=== PATIENT | female | born 1965 | race Caucasian/White ===

== ENCOUNTER 2022-06-05 21:04 | Emergency (ER) | payer OTHER ==
[~2022-06-05] VITALS: Ht 149.9 cm; Wt 65.3 kg
[~2022-06-05 21:04] MED LIST: BLACK COHOSH40 M1 PO; CALCIUM 600 +1 EACH PO; CHLORHEXIDINE473 ML MM; CYCLOBENZAPRINE10 MG PO; CYCLOBENZAPRINE5 MG PO; ECHINACEA125 MG PO; HYDROCODON-ACE1 EA10 PO; IBUPROFEN400 MG PO; LEVOTHYROXINE75 MCG PO; NAPROSYN500 MG PO; NORCO 5-325 TA1 EACH PO
[2022-06-05] MEDS ORDERED: ZOLOFT25 MG PO (21:23)
[2022-06-05] MEDS ORDERED: WELLBUTRIN SR150 MG PO (21:23)
[2022-06-05] MEDS ORDERED: VITAMIN B122500 MCG PO (21:24)
[2022-06-05] MEDS ORDERED: VITAMIN D325 MC2 PO (21:24)
[2022-06-05] MEDS ORDERED: XANAX0.5 MG PO (21:55)
--- NOTE | 2022-06-08 12:55 | EKG ---
[facility] [address] [facility] [place] [address] Signed Sinus rhythm with occasional premature ventricular complexes Otherwise normal ECG No previous ECGs available Confirmed by NADIRA GASPAR MD ([id number]) on 06/08/2022 12:55:08 PM Electronically Signed By: NADIRA GASPAR MD 06/08/22 1255 PATIENT NAME: CHARLOTTE HUGHES Electrocardiogram DATE OF : 61 PHYSICIAN: NADIRA GASPAR MD REPORT #: [id number] REPORT IS CONFIDENTIAL AND NOT TO BE RELEASED WITHOUT AUTHORIZATION
== END 2022-06-05 22:30 | disposition home or self-care (01) ==
LOC: ED 21:04
DX: F41.9 Anxiety disorder, unspecified (principal); E03.9 Hypothyroidism, unspecified; F17.200 Nicotine dependence, unspecified, uncomplicated; Z88.5 Allergy status to narcotic agent
CPT/HCPCS: 36415; 71045; 80053; 83735; 84484; 85025; 93005; 93010; 96374; 99285-25; J2060

== ENCOUNTER 2023-03-01 19:53 | Emergency (ER) | payer OTHER ==
[~2023-03-01] VITALS: Ht 149.9 cm; Wt 65.3 kg
[~2023-03-01 19:53] MED LIST changes: +VITAMIN B122500 MCG PO; +VITAMIN D325 MC2 PO; +WELLBUTRIN SR150 MG PO; +XANAX0.5 MG PO; +ZOLOFT25 MG PO
[2023-03-01] MEDS ORDERED: AMOX TR-K CLV1 EAC1 PO (21:08)
== END 2023-03-01 21:24 | disposition home or self-care (01) ==
LOC: ED 19:53
DX: J02.9 Acute pharyngitis, unspecified (principal); Z20.822 Contact with and (suspected) exposure to COVID-19; E03.9 Hypothyroidism, unspecified; Z88.5 Allergy status to narcotic agent; Z79.899 Other long term (current) drug therapy
CPT/HCPCS: 87502; 87880; 96372; 99283-25; C9803; J1885; U0003

== ENCOUNTER 2023-04-24 16:18 | Emergency (ER) | payer OTHER ==
[~2023-04-24 16:18] MED LIST changes: +AMOX TR-K CLV1 EAC1 PO
[2023-04-24] MEDS ORDERED: OMEPRAZOLE20 MG PO (16:34)
[2023-04-24] MEDS ORDERED: PANTOPRAZOLE SO40 MG PO (17:47)
[2023-04-24 17:59] VITALS: BP 152/78
--- NOTE | 2023-04-25 18:10 | EKG ---
[facility] [address] [facility] [place] [address] Signed Sinus bradycardia Otherwise normal ECG When compared with ECG of 05-JUN-2022 21:10, premature ventricular complexes are no longer present Confirmed by NADIRA GASPAR MD ([id number]) on 04/25/2023 6:10:19 PM Electronically Signed By: NADIRA GASPAR MD 04/25/23 1810 PATIENT NAME: CHARLOTTE HUGHES Electrocardiogram DATE OF : 61 PHYSICIAN: NADIRA GASPAR MD REPORT #: [id number] REPORT IS CONFIDENTIAL AND NOT TO BE RELEASED WITHOUT AUTHORIZATION
== END 2023-04-24 17:59 | disposition home or self-care (01) ==
LOC: ED 16:18
DX: R07.89 Other chest pain (principal); K20.90 Esophagitis, unspecified without bleeding; E03.9 Hypothyroidism, unspecified; F17.200 Nicotine dependence, unspecified, uncomplicated; Z88.5 Allergy status to narcotic agent; Z79.899 Other long term (current) drug therapy
CPT/HCPCS: 36415; 76705; 80053; 81003; 83690; 84484; 85025; 93005; 93010; 96374; 96375; 99285-25; J1885

== ENCOUNTER 2023-06-14 22:23 | Emergency (ER) | payer OTHER ==
[~2023-06-14] VITALS: Ht 149.9 cm; Wt 68.5 kg
--- OUTSIDE RECORDS SUMMARY | ~2023-06-14 | XMS | Continuity of Care Document ---
Demographics + + + | Address | [address] | | | [place] [address] | + + + | Preferred Language | Unknown | + + + | Marital Status | | + + + | Religion Affiliation | Unknown | + + + | Race | White | + + + | Ethnic Group | Not or | + + + Author + + + | Author | [facility] | + + + | Organization | [facility] | + + + | Address | [address] | | | [place] [address] | + + + | Phone | | + + + Care Team Providers + + + + | Care [facility] Stitcher Name | Role | Phone | + + + + Unavailable | Unavailable | + + + + Unavailable | Unavailable | + + + + Allergies and Intolerances + + + + + + | date | description | facility | reaction | severity | + + + + + + | (no date) | Mild | [facility] | (no reaction) | (no severity) | | | [facility] | | | + + + + + + | (no date) | Shortness of | [facility] | (no reaction) | (no severity) | | | breath | [facility] | | | + + + + + + | (no date) | Morphine | [facility] | (no reaction) | (no severity) | | | | [facility] | | | + + + + + + | (no date) | Morphine | [facility] | (no reaction) | (no severity) | | | | [facility] | | | + + + + + + | (no date) | morphine | [facility] | (no reaction) | (no severity) | | | | [facility] | | | + + + + + + | (no date) | Morphine | [facility] | (no reaction) | (no severity) | | | | [facility] | | | + + + + + + Encounters No information. Functional Status No information. Immunizations + + + + | date | description | facility | + + + + | 2017-01-30 00:00 | [facility] | + + + + Medications + + + + | date | description | facility | + + + + | 2014-06-08 00:00 | NAPROXEN | [facility] | + + + + | 2022-06-09 00:00 | CYANOCOBALAMIN (VITAMIN | [facility] | | | -) | | + + + + | 2023-03-01 00:00 | CYANOCOBALAMIN (VITAMIN | [facility] | | | B-) | | + + + + | 2023-04-24 00:00 | CYANOCOBALAMIN (VITAMIN | [facility] | | | B-12) | | + + + + | 2022-06-05 00:00 | ALPRAZOLAM | [facility] | + + + + | 2023-04-24 00:00 | OMEPRAZOLE | [facility] | + + + + | 2022-06-09 00:00 | SERTRALINE HCL | [facility] | + + + + | 2023-03-01 00:00 | SERTRALINE HCL | [facility] | + + + + | 2023-04-24 00:00 | SERTRALINE HCL | [facility] | + + + + | 2022-06-09 00:00 | Cholecalciferol (Vitamin | [facility] | | | D3) | | + + + + | 2023-03-01 00:00 | Cholecalciferol (Vitamin | [facility] | | | D3) | | + + + + | 2023-04-24 00:00 | Cholecalciferol (Vitamin | [facility] | | | D3) | | + + + + | 2022-06-09 00:00 | JULIETH JAMES | [facility] | + + + + | 2023-03-01 00:00 | JULIETH JAMES | [facility] | + + + + | 2023-04-24 00:00 | BLACK ERIKA | [facility] | + + + + | 2023-04-24 00:00 | PANTOPRAZOLE SODIUM | [facility] | + + + + | 2022-06-09 00:00 | ECHINACEA PURPUREA EXTRACT | [facility] | | | | | + + + + | 2023-03-01 00:00 | ECHINACEA PURPUREA EXTRACT | [facility] | | | | | + + + + | 2023-04-24 00:00 | ECHINACEA PURPUREA EXTRACT | [facility] | | | | | + + + + | 2023-03-01 00:00 | AMOXICILLIN/POTASSIUM CLAV | [facility] | | | | | + + + + | 2022-06-09 00:00 | CALCIUM CARBONATE/VITAMIN | [facility] | | | D3 | | + + + + | 2023-03-01 00:00 | CALCIUM CARBONATE/VITAMIN | [facility] | | | D3 | | + + + + | 2023-04-24 00:00 | CALCIUM CARBONATE/VITAMIN | [facility] | | | D3 | | + + + + | 2022-06-09 00:00 | CYCLOBENZAPRINE HCL | [facility] | + + + + | 2023-03-01 00:00 | CYCLOBENZAPRINE HCL | [facility] | + + + + | 2023-04-24 00:00 | CYCLOBENZAPRINE HCL | [facility] | + + + + | 2022-06-09 00:00 | CHLORHEXIDINE GLUCONATE | [facility] | + + + + | 2023-03-01 00:00 | CHLORHEXIDINE GLUCONATE | [facility] | + + + + | 2023-04-24 00:00 | CHLORHEXIDINE GLUCONATE | [facility] | + + + + | 2014-06-08 00:00 | HYDROCODONE | [facility] | | | BIT/ACETAMINOPHEN | | + + + + | 2022-06-09 00:00 | LEVOTHYROXINE SODIUM | [facility] | + + + + | 2023-03-01 00:00 | LEVOTHYROXINE SODIUM | [facility] | + + + + | 2023-04-24 00:00 | LEVOTHYROXINE SODIUM | [facility] | + + + + | 2022-06-09 00:00 | buPROPion HCL | [facility] | + + + + | 2023-03-01 00:00 | buPROPion HCL | [facility] | + + + + | 2023-04-24 00:00 | buPROPion HCL | [facility] | + + + + Problems + + + + | date | description | facility | + + + + | 2015-07-14 00:00 | Dizziness and giddiness | [facility] | + + + + | 2017-01-30 00:00 | Laceration | [facility] | + + + + | 2022-06-05 00:00 | Anxiety | [facility] | + + + + | 2023-03-01 00:00 | Pharyngitis | [facility] | + + + + | 2023-04-24 00:00 | Esophagitis | [facility] | + + + + | 2023-04-24 00:00 | Atypical chest pain | [facility] | + + + + Procedures No information. Results/Labs +--------+--------+ +---------+--------+---------+ | test | date | facility | value | unit | notes | +--------+--------+ +---------+--------+---------+ + + | Result panel 1 | + + + + + +-------+ + + | | 2022-06-05 | [facility] | 7.3 | (missing) | (missing) | | (unavailable | 21:20 | [facility] | | | | + + + +-------+ + + + + | Result panel 2 | + + + + + +--------+ + + | | 2022-06-05 | [facility] | 4.24 | (missing) | (missing) | | (unavailable | 21:20 | [facility] | | | | + + + +--------+ + + + + | Result panel 3 | + + + + + +--------+ + + | | 2022-06-05 | [facility] | 13.1 | (missing) | (missing) | | (unavailable | 21:20 | [facility] | | | | + + + +--------+ + + + + | Result panel 4 | + + + + + +--------+ + + | | 2022-06-05 | [facility] | 38.3 | (missing) | (missing) | | (unavailable | 21:20 | [facility] | | | | + + + +--------+ + + + + | Result panel 5 | + + + + + +--------+ + + | | 2022-06-05 | [facility] | 90.5 | (missing) | (missing) | | (unavailable | 21:20 | [facility] | | | | + + + +--------+ + + + + | Result panel 6 | + + + + + +--------+ + + | | 2022-06-05 | [facility] | 30.9 | (missing) | (missing) | | (unavailable | 21:20 | [facility] | | | | + + + +--------+ + + + + | Result panel 7 | + + + + + +--------+ + + | | 2022-06-05 | [facility] | 34.1 | (missing) | (missing) | | (unavailable | 21:20 | [facility] | | | | + + + +--------+ + + + + | Result panel 8 | + + + + + +--------+ + + | | 2022-06-05 | [facility] | 13.9 | (missing) | (missing) | | (unavailable | 21:20 | [facility] | | | | + + + +--------+ + + + + | Result panel 9 | + + + + + +-------+ + + | | 2022-06-05 | [facility] | 190 | (missing) | (missing) | | (unavailable | 21:20 | [facility] | | | | + + + +-------+ + + + + | Result panel 10 | + + + + + +--------+ + + | | 2022-06-05 | [facility] | 52.2 | (missing) | (missing) | | (unavailable | 21:20 | [facility] | | | | + + + +--------+ + + + + | Result panel 11 | + + + + + +--------+ + + | | 2022-06-05 | [facility] | 35.6 | (missing) | (missing) | | (unavailable | 21:20 | [facility] | | | | + + + +--------+ + + + + | Result panel 12 | + + + + + +-------+ + + | | 2022-06-05 | [facility] | 8.9 | (missing) | (missing) | | (unavailable | 21:20 | [facility] | | | | + + + +-------+ + + + + | Result panel 13 | + + + + + +-------+ + + | | 2022-06-05 | [facility] | 2.5 | (missing) | (missing) | | (unavailable | 21:20 | [facility] | | | | + + + +-------+ + + + + | Result panel 14 | + + + + + +-------+ + + | | 2022-06-05 | [facility] | 0.8 | (missing) | (missing) | | (unavailable | 21:20 | [facility] | | | | + + + +-------+ + + + + | Result panel 15 | + + + + + +------+---------+ + | | 2022-06-05 | [facility] | 97 | mg/dL | (missing) | | (unavailable | 21:20 | [facility] | | | | + + + +------+---------+ + + + | Result panel 16 | + + + + + +------+---------+ + | | 2022-06-05 | [facility] | 22 | mg/dL | (missing) | | (unavailable | 21:20 | [facility] | | | | + + + +------+---------+ + + + | Result panel 17 | + + + + + +--------+---------+ + | | 2022-06-05 | [facility] | 0.93 | mg/dL | (missing) | | (unavailable | 21:20 | [facility] | | | | + + + +--------+---------+ + + + | Result panel 18 | + + + + + +------+ + + | | 2022-06-05 | [facility] | 71 | (missing) | (missing) | | (unavailable | 21:20 | [facility] | | | | + + + +------+ + + + + | Result panel 19 | + + + + + +---------+ + + | | 2022-06-05 | [facility] | 23.65 | (missing) | (missing) | | (unavailable | 21:20 | [facility] | | | | + + + +---------+ + + + + | Result panel 20 | + + + + + +-------+ + + | | 2022-06-05 | [facility] | 139 | (missing) | (missing) | | (unavailable | 21:20 | [facility] | | | | + + + +-------+ + + + + | Result panel 21 | + + + + + +-------+ + + | | 2022-06-05 | [facility] | 3.8 | (missing) | (missing) | | (unavailable | 21:20 | [facility] | | | | + + + +-------+ + + + + | Result panel 22 | + + + + + +-------+ + + | | 2022-06-05 | [facility] | 104 | (missing) | (missing) | | (unavailable | 21:20 | [facility] | | | | + + + +-------+ + + + + | Result panel 23 | + + + + + +------+ + + | | 2022-06-05 | [facility] | 25 | (missing) | (missing) | | (unavailable | 21:20 | [facility] | | | | + + + +------+ + + + + | Result panel 24 | + + + + + +--------+ + + | | 2022-06-05 | [facility] | 13.8 | (missing) | (missing) | | (unavailable | 21:20 | [facility] | | | | + + + +--------+ + + + + | Result panel 25 | + + + + + +-------+---------+ + | | 2022-06-05 | [facility] | 9.3 | mg/dL | (missing) | | (unavailable | 21:20 | [facility] | | | | + + + +-------+---------+ + + + | Result panel 26 | + + + + + +-------+---------+ + | | 2022-06-05 | [facility] | 2.0 | mg/dL | (missing) | | (unavailable | 21:20 | [facility] | | | | + + + +-------+---------+ + + + | Result panel 27 | + + + + + +-------+ + + | | 2022-06-05 | [facility] | 6.9 | (missing) | (missing) | | (unavailable | 21:20 | [facility] | | | | + + + +-------+ + + + + | Result panel 28 | + + + + + +-------+ + + | | 2022-06-05 | [facility] | 3.6 | (missing) | (missing) | | (unavailable | 21:20 | [facility] | | | | + + + +-------+ + + + + | Result panel 29 | + + + + + +-------+ + + | | 2022-06-05 | [facility] | 3.3 | (missing) | (missing) | | (unavailable | 21:20 | [facility] | | | | + + + +-------+ + + + + | Result panel 30 | + + + + + +--------+ + + | | 2022-06-05 | [facility] | 1.09 | (missing) | (missing) | | (unavailable | 21:20 | [facility] | | | | + + + +--------+ + + + + | Result panel 31 | + + + + + +-------+ + + | | 2022-06-05 | [facility] | 0.4 | (missing) | (missing) | | (unavailable | 21:20 | [facility] | | | | + + + +-------+ + + + + | Result panel 32 | + + + + + +------+ + + | | 2022-06-05 | [facility] | 25 | (missing) | (missing) | | (unavailable | 21:20 | [facility] | | | | + + + +------+ + + + + | Result panel 33 | + + + + + +------+ + + | | 2022-06-05 | [facility] | 32 | (missing) | (missing) | | (unavailable | 21:20 | [facility] | | | | + + + +------+ + + + + | Result panel 34 | + + + + + +------+ + + | | 2022-06-05 | [facility] | 69 | (missing) | (missing) | | (unavailable | 21:20 | [facility] | | | | + + + +------+ + + + + | Result panel 35 | + + + + + +-------+ + + | | 2022-06-05 | [facility] | 5.8 | (missing) | (missing) | | (unavailable | 21:20 | [facility] | | | | + + + +-------+ + + + + | Result panel 36 | + + + + + + + + + | | 2023-03-01 | [facility] | NEGATIVE | (missing) | (missing) | | (unavailable | 20:02:07 | [facility] | | | | + + + + + + + + + | Result panel 37 | + + + + + + + + + | | 2023-03-01 | [facility] | NEGATIVE | (missing) | (missing) | | (unavailable | 20:21:07 | [facility] | | | | + + + + + + + + + | Result panel 38 | + + + + + + + + + | | 2023-03-01 | [facility] | NEGATIVE | (missing) | (missing) | | (unavailable | 20:21:07 | [facility] | | | | + + + + + + + + + | Result panel 39 | + + + + + + + + + | | 2023-03-01 | [facility] | NEGATIVE | (missing) | (missing) | | (unavailable | 20:21:07 | [facility] | | | | + + + + + + + + + | Result panel 40 | + + + + + + + + + | | 2023-03-01 | [facility] | NEGATIVE | (missing) | (missing) | | (unavailable | 20:21:07 | [facility] | | | | + + + + + + + + + | Result panel 41 | + + + + + +-------+ + + | | 2023-04-24 | [facility] | 5.6 | (missing) | (missing) | | (unavailable | 16:39:07 [facility] | | | | + + + +-------+ + + + + | Result panel 42 | + + + + + +--------+ + + | | 2023-04-24 | [facility] | 49.0 | (missing) | (missing) | | (unavailable | 16:39:07 [facility] | | | | + + + +--------+ + + + + | Result panel 43 | + + + + + +--------+ + + | | 2023-04-24 | [facility] | 39.0 | (missing) | (missing) | | (unavailable | 16:39:07 [facility] | | | | + + + +--------+ + + + + | Result panel 44 | + + + + + +-------+ + + | | 2023-04-24 | [facility] | 8.3 | (missing) | (missing) | | (unavailable | 16:39:07 [facility] | | | | + + + +-------+ + + + + | Result panel 45 | + + + + + +-------+ + + | | 2023-04-24 | [facility] | 2.2 | (missing) | (missing) | | (unavailable | 16:39:07 [facility] | | | | + + + +-------+ + + + + | Result panel 46 | + + + + + +-------+ + + | | 2023-04-24 | [facility] | 1.5 | (missing) | (missing) | | (unavailable | 16:39:07 [facility] | | | | + + + +-------+ + + + + | Result panel 47 | + + + + + +--------+ + + | | 2023-04-24 | [facility] | 4.49 | (missing) | (missing) | | (unavailable | 16:39:07 [facility] | | | | + + + +--------+ + + + + | Result panel 48 | + + + + + +------+---------+ + | | 2023-04-24 | [facility] | 79 | mg/dL | (missing) | | (unavailable | 16:39:07 [facility] | | | | + + + +------+---------+ + + + | Result panel 49 | + + + + + +------+---------+ + | | 2023-04-24 | [facility] | 22 | mg/dL | (missing) | | (unavailable | 16:39:07 [facility] | | | | + + + +------+---------+ + + + | Result panel 50 | + + + + + +--------+---------+ + | | 2023-04-24 | [facility] | 0.86 | mg/dL | (missing) | | (unavailable | 16:39:07 [facility] | | | | + + + +--------+---------+ + + + | Result panel 51 | + + + + + +--------+ + + | | 2023-04-24 | [facility] | 13.8 | (missing) | (missing) | | (unavailable | 16:39:07 [facility] | | | | + + + +--------+ + + + + | Result panel 52 | + + + + + +------+ + + | | 2023-04-24 | [facility] | 78 | (missing) | (missing) | | (unavailable | 16:39:07 [facility] | | | | + + + +------+ + + + + | Result panel 53 | + + + + + +---------+ + + | | 2023-04-24 | [facility] | 25.58 | (missing) | (missing) | | (unavailable | 16:39:07 [facility] | | | | + + + +---------+ + + + + | Result panel 54 | + + + + + +-------+ + + | | 2023-04-24 | [facility] | 140 | (missing) | (missing) | | (unavailable | 16:39:07 [facility] | | | | + + + +-------+ + + + + | Result panel 55 | + + + + + +-------+ + + | | 2023-04-24 | [facility] | 3.9 | (missing) | (missing) | | (unavailable | 16:39:07 [facility] | | | | + + + +-------+ + + + + | Result panel 56 | + + + + + +-------+ + + | | 2023-04-24 | [facility] | 104 | (missing) | (missing) | | (unavailable | 16:39:07 [facility] | | | | + + + +-------+ + + + + | Result panel 57 | + + + + + +------+ + + | | 2023-04-24 | [facility] | 27 | (missing) | (missing) | | (unavailable | 16:39:07 [facility] | | | | + + + +------+ + + + + | Result panel 58 | + + + + + +--------+ + + | | 2023-04-24 | [facility] | 12.9 | (missing) | (missing) | | (unavailable | 16:39:07 [facility] | | | | + + + +--------+ + + + + | Result panel 59 | + + + + + +-------+---------+ + | | 2023-04-24 | [facility] | 8.8 | mg/dL | (missing) | | (unavailable | 16:39:07 [facility] | | | | + + + +-------+---------+ + + + | Result panel 60 | + + + + + +-------+ + + | | 2023-04-24 | [facility] | 7.6 | (missing) | (missing) | | (unavailable | 16:39:07 [facility] | | | | + + + +-------+ + + + + | Result panel 61 | + + + + + +-------+ + + | | 2023-04-24 | [facility] | 4.1 | (missing) | (missing) | | (unavailable | 16:39:07 [facility] | | | | + + + +-------+ + + + + | Result panel 62 | + + + + + +--------+ + + | | 2023-04-24 | [facility] | 40.3 | (missing) | (missing) | | (unavailable | 16:39:07 [facility] | | | | + + + +--------+ + + + + | Result panel 63 | + + + + + +-------+ + + | | 2023-04-24 | [facility] | 3.5 | (missing) | (missing) | | (unavailable | 16:39:07 [facility] | | | | + + + +-------+ + + + + | Result panel 64 | + + + + + +--------+ + + | | 2023-04-24 | [facility] | 1.17 | (missing) | (missing) | | (unavailable | 16[facility]39:07 [facility] | | | | + + + +--------+ + + + + | Result panel 65 | + + + + + +-------+ + + | | 2023-04-24 | [facility] | 0.3 | (missing) | (missing) | | (unavailable | 16[facility]39:07 [facility] | | | + + + +-------+ + + + + | Result panel 66 | + + + + + +------+ + + | | 2023-04-24 | [facility] | 24 | (missing) | (missing) | | (unavailable | 16[facility]39:07 [facility] | | | | + + + +------+ + + + + | Result panel 67 | + + + + + +------+ + + | | 2023-04-24 | [facility] | 31 | (missing) | (missing) | | (unavailable | 16[facility]39:07 [facility] | | | | + + + +------+ + + + + | Result panel 68 | + + + + + +------+ + + | | 2023-04-24 | [facility] | 73 | (missing) | (missing) | | (unavailable | 16:39:07 [facility] | | | | + + + +------+ + + + + | Result panel 69 | + + + + + +-------+ + + | | 2023-04-24 | [facility] | 244 | (missing) | (missing) | | (unavailable | 16:39:07 [facility] | | | | + + + +-------+ + + + + | Result panel 70 | + + + + + +-------+ + + | | 2023-04-24 | [facility] | 6.2 | (missing) | (missing) | | (unavailable | 16[facility]39:07 [facility] | | | | + + + +-------+ + + + + | Result panel 71 | + + + + + +--------+ + + | | 2023-04-24 | [facility] | 89.8 | (missing) | (missing) | | (unavailable | 16[facility]39:07 [facility] | | | + + + +--------+ + + + + | Result panel 72 | + + + + + +--------+ + + | | 2023-04-24 | [facility] | 30.7 | (missing) | (missing) | | (unavailable | 16[facility]39:07 [facility] | | | + + + +--------+ + + + + | Result panel 73 | + + + + + +--------+ + + | | 2023-04-24 | [facility] | 34.2 | (missing) | (missing) | | (unavailable | [facility]39:07 [facility] | | | + + + +--------+ + + + + | Result panel 74 | + + + + + +--------+ + + | | 2023-04-24 | [facility] | 13.6 | (missing) | (missing) | | (unavailable | [facility]39:07 [facility] | | | + + + +--------+ + + + + | Result panel 75 | + + + + + +-------+ + + | | 2023-04-24 | [facility] | 176 | (missing) | (missing) | | (unavailable | 16[facility]39:07 [facility] | | | | + + + +-------+ + + + + | Result panel 76 | + + + + + + + + + | | 2023-04-24 | [facility] | YELLOW | (missing) | (missing) | | (unavailable | 17:17:07 [facility] | | | | + + + + + + + + + | Result panel 77 | + + + + + +---------+ + + | | 2023-04-24 | [facility] | CLEAR | (missing) | (missing) | | (unavailable | 17:17:07 [facility] | | | | + + + +---------+ + + + + | Result panel 78 | + + + + + + + + + | | 2023-04-24 | [facility] | NEGATIVE | (missing) | (missing) | | (unavailable | 17:17:07 [facility] | | | | + + + + + + + + + | Result panel 79 | + + + + + + + + + | | 2023-04-24 | [facility] | NEGATIVE | (missing) | (missing) | | (unavailable | 17[facility]17:07 [facility] | | | | + + + + + + + + + | Result panel 80 | + + + + + + + + + | | 2023-04-24 | [facility] | NEGATIVE | (missing) | (missing) | | (unavailable | 17:17:07 | [facility] | | | | + + + + + + + + + | Result panel 81 | + + + + + +---------+ + + | | 2023-04-24 | [facility] | 1.010 | (missing) | (missing) | | (unavailable | [facility]:17:07 [facility] | | | | + + + +---------+ + + + + | Result panel 82 | + + + + + + + + + | | 2023-04-24 | [facility] | NEGATIVE | (missing) | (missing) | | (unavailable | [facility]17:07 [facility] | | | | + + + + + + + + + | Result panel 83 | + + + + + +-------+ + + | | 2023-04-24 | [facility] | 6.5 | (missing) | (missing) | | (unavailable | [facility]17:07 [facility] | | | | + + + +-------+ + + + + | Result panel 84 | + + + + + + + + + | | 2023-04-24 | [facility] | NEGATIVE | (missing) | (missing) | | (unavailable | [facility]17:07 [facility] | | | | + + + + + + + + + | Result panel 85 | + + + + + + + + + | | 2023-04-24 | [facility] | NORMAL | (missing) | (missing) | | (unavailable | [facility]17:07 [facility] | | | | + + + + + + + + + | Result panel 86 | + + + + + + + + + | | 2023-04-24 | [facility] | NEGATIVE | (missing) | (missing) | | (unavailable | [facility]17:07 [facility] | | | | + + + + + + + + + | Result panel 87 | + + + + + + + + + | | 2023-04-24 | [facility] | NEGATIVE | (missing) | (missing) | | (unavailable | [facility]17:07 [facility] | | | | + + + + + + + Social History No information. Vital Signs + + + +---------+ | date | measurement | value | units | + + + +---------+ | 2022-06-05 00:00 | BMI | 29.1 | kg/m2 | + + + +---------+ | 2022-06-05 00:00 | BP_diastolic | 72 | mmHg | + + + +---------+ | 2022-06-05 00:00 | BP_systolic | 130 | mmHg | + + + +---------+ | 2022-06-05 00:00 | heart_rate | 76 | /min | + + + +---------+ | 2022-06-05 00:00 | height_metric | 149.86 | cm | + + + +---------+ | 2022-06-05 00:00 | height_standard | 59 | in | + + + +---------+ | 2022-06-05 00:00 | o2_saturation | 96 | % | + + + +---------+ | 2022-06-05 00:00 | respiration_rate | 12 | /min | + + + +---------+ | 2022-06-05 00:00 | temperature_metric | 36.56 | C | | | | | | + + + +---------+ | 2022-06-05 00:00 | | 97.8 | F | | | temperature_standar | | | | | d | | | + + + +---------+ | 2022-06-05 00:00 | weight_metric | 65.32 | kg | + + + +---------+ | 2022-06-05 00:00 | weight_standard | 144 | lb | + + + +---------+ | 2022-06-05 00:00 | weight_standard | 144.01 | lb | + + + +---------+ | 2023-03-01 00:00 | BMI | 29.1 | kg/m2 | + + + +---------+ | 2023-03-01 00:00 | BP_diastolic | 69 | mmHg | + + + +---------+ | 2023-03-01 00:00 | BP_systolic | 115 | mmHg | + + + +---------+ | 2023-03-01 00:00 | heart_rate | 94 | /min | + + + +---------+ | 2023-03-01 00:00 | height_metric | 149.86 | cm | + + + +---------+ | 2023-03-01 00:00 | height_standard | 59 | in | + + + +---------+ | 2023-03-01 00:00 | o2_saturation | 95 | % | + + + +---------+ | 2023-03-01 00:00 | respiration_rate | 16 | /min | + + + +---------+ | 2023-03-01 00:00 | temperature_metric | 37.61 | C | | | | | | + + + +---------+ | 2023-03-01 00:00 | | 99.7 | F | | | temperature_standar | | | | | d | | | + + + +---------+ | 2023-03-01 00:00 | weight_metric | 65.32 | kg | + + + +---------+ | 2023-03-01 00:00 | weight_standard | 144 | lb | + + + +---------+ | 2023-03-01 00:00 | weight_standard | 144.01 | lb | + + + +---------+ | 2023-04-24 00:00 | BP_diastolic | 78 | mmHg | + + + +---------+ | 2023-04-24 00:00 | BP_systolic | 152 | mmHg | + + + +---------+ | 2023-04-24 00:00 | heart_rate | 59 | /min | + + + +---------+ | 2023-04-24 00:00 | height_metric | 149.86 | cm | + + + +---------+ | 2023-04-24 00:00 | height_standard | 59 | in | + + + +---------+ | 2023-04-24 00:00 | o2_saturation | 99 | % | + + + +---------+ | 2023-04-24 00:00 | respiration_rate | 16 | /min | + + + +---------+ | 2023-04-24 00:00 | temperature_metric | 36.83 | C | | | | | | + + + +---------+ | 2023-04-24 00:00 | | 98.3 | F | | | temperature_standar | | | | | d | | | + + + +---------+"
--- OUTSIDE RECORDS SUMMARY | ~2023-06-14 | XMS | Continuity of Care Document ---
Demographics + + + | Address | [address] | | | [place] [address] | + + + | Preferred Language | Unknown | + + + | Marital Status | | + + + | Protestant Affiliation | Unknown | + + + | Race | White | + + + | Ethnic Group | Not or | + + + Author + + + | Author | [facility] | + + + | Organization | [facility] | + + + | Address | [address] | | | [place] [address] | + + + | Phone | | + + + Care Team Providers + + + + | Care Cryptologic Technician Technical Name | Role | Phone | + [...] | 2017-01-30 00:00 | [facility] | [facility] | + + + + Medications + + + + | date | description | facility | + + + + | 2014-06-08 00:00 | NAPROXEN | [facility] | + + + + | 2022-06-09 00:00 | CYANOCOBALAMIN (VITAMIN | [facility] | | | -) | | + + + + | 2023-03-01 00:00 | CYANOCOBALAMIN (VITAMIN | [facility] | | | B-) | | + + + + | 2023-04-24 00:00 | CYANOCOBALAMIN (VITAMIN | [facility] | | | B-12) | | + + + + | 2022-06-05 00:00 | ALPRAZOLAM | [facility] | + + + + | 2023-04-24 00:00 | OMEPRAZOLE | [facility] | + + + + | 2022-06-09 00:00 | SERTRALINE HCL | [facility] | + + + + | 2023-03-01 00:00 | SERTRALINE HCL | [facility] | + + + + | 2023-04-24 00:00 | SERTRALINE HCL | [facility] | + + + + | 2022-06-09 00:00 | Cholecalciferol (Vitamin | [facility] | | | D3) | | + + + + | 2023-03-01 00:00 | Cholecalciferol (Vitamin | [facility] | | | D3) | | + + + + | 2023-04-24 00:00 | Cholecalciferol (Vitamin | [facility] | | | D3) | | + + + + | 2022-06-09 00:00 | JULIETH JAMES | [facility] | + + + + | 2023-03-01 00:00 | JULIETH JAMES | [facility] | + + + + | 2023-04-24 00:00 | BLACK ERIKA | [facility] | + + + + | 2023-04-24 00:00 | PANTOPRAZOLE SODIUM | [facility] | + + + + | 2022-06-09 00:00 | ECHINACEA PURPUREA EXTRACT | [facility] | | | | | + + + + | 2023-03-01 00:00 | ECHINACEA PURPUREA EXTRACT | [facility] | | | | | + + + + | 2023-04-24 00:00 | ECHINACEA PURPUREA EXTRACT | [facility] | | | | | + + + + | 2023-03-01 00:00 | AMOXICILLIN/POTASSIUM CLAV | [facility] | | | | | + + + + | 2022-06-09 00:00 | CALCIUM CARBONATE/VITAMIN | [facility] | | | D3 | | + + + + | 2023-03-01 00:00 | CALCIUM CARBONATE/VITAMIN | [facility] | | | D3 | | + + + + | 2023-04-24 00:00 | CALCIUM CARBONATE/VITAMIN | [facility] | | | D3 | | + + + + | 2022-06-09 00:00 | CYCLOBENZAPRINE HCL | [facility] | + + + + | 2023-03-01 00:00 | CYCLOBENZAPRINE HCL | [facility] | + + + + | 2023-04-24 00:00 | CYCLOBENZAPRINE HCL | [facility] | + + + + | 2022-06-09 00:00 | CHLORHEXIDINE GLUCONATE | [facility] | + + + + | 2023-03-01 00:00 | CHLORHEXIDINE GLUCONATE | [facility] | + + + + | 2023-04-24 00:00 | CHLORHEXIDINE GLUCONATE | [facility] | + + + + | 2014-06-08 00:00 | HYDROCODONE | [facility] | | | BIT/ACETAMINOPHEN | | + + + + | 2022-06-09 00:00 | LEVOTHYROXINE SODIUM | [facility] | + + + + | 2023-03-01 00:00 | LEVOTHYROXINE SODIUM | [facility] | + + + + | 2023-04-24 00:00 | LEVOTHYROXINE SODIUM | [facility] | + + + + | 2022-06-09 00:00 | buPROPion HCL | [facility] | + + + + | 2023-03-01 00:00 | buPROPion HCL | [facility] | + + + + | 2023-04-24 00:00 | buPROPion HCL | [facility] | + + + + Problems + + + + | date | description | facility | + + + + | 2015-07-14 00:00 | Dizziness and giddiness | [facility] | + + + + | 2017-01-30 00:00 | Laceration | [facility] | + + + + | 2022-06-05 00:00 | Anxiety | [facility] | + + + + | 2023-03-01 00:00 | Pharyngitis | [facility] | + + + + | 2023-04-24 00:00 | Esophagitis | [facility] | + + + + | 2023-04-24 00:00 | Atypical chest pain | [facility] | + + + + Procedures [...] (missing) | | (unavailable | 16:39:07 | [facility] | | | | | ) | [...] (missing) | | (unavailable | 16:39:07 | [facility] | | | | | ) | [...]
[~2023-06-14 22:23] MED LIST changes: +OMEPRAZOLE20 MG PO; +PANTOPRAZOLE SO40 MG PO
[2023-06-15 01:17] VITALS: BP 144/62
== END 2023-06-15 01:18 | disposition home or self-care (01) ==
LOC: ED 22:23
DX: M79.671 Pain in right foot (principal); M79.604 Pain in right leg; F17.200 Nicotine dependence, unspecified, uncomplicated; Z88.5 Allergy status to narcotic agent; Z79.890 Hormone replacement therapy; Z79.899 Other long term (current) drug therapy
CPT/HCPCS: 93971; 99283 25

== ENCOUNTER 2024-11-11 15:43 | Emergency (ER) | payer OTHER ==
[~2024-11-11] VITALS: Ht 149.9 cm; Wt 73.0 kg
[~2024-11-11 15:43] MED LIST changes: +ZITHROMAX250 MG PO
[2024-11-11] MEDS ORDERED: MULTI-DAY PLUS1 EACH PO (16:38)
[2024-11-11] MEDS ORDERED: MAGNESIUM400 MG PO (16:38)
[2024-11-11] MEDS ORDERED: NAPROXEN500 MG PO (16:38)
[2024-11-11] MEDS ORDERED: VITAMIN E TOP (16:39)
[2024-11-11] MEDS ORDERED: VITAMIN B COMP1 EAC1 PO (16:39)
[2024-11-11] MEDS ORDERED: [UNRECOGNIZED DRUG - OTHER] PO (16:39)
[2024-11-11] MEDS ORDERED: OXYCODONE/APAP 5/325 TAB PO ONE (17:15)
[2024-11-11] MEDS ORDERED: PERCOCET 5-3251 EACH PO (17:43)
[2024-11-11 17:55] VITALS: BP 131/74
== END 2024-11-11 17:55 | disposition home or self-care (01) ==
LOC: ED 15:43
DX: S80.02XA Contusion of left knee, initial encounter (principal); S40.011A Contusion of right shoulder, initial encounter; S40.021A Contusion of right upper arm, initial encounter; E03.9 Hypothyroidism, unspecified; K21.9 Gastro-esophageal reflux disease without esophagitis; F17.200 Nicotine dependence, unspecified, uncomplicated; Z88.5 Allergy status to narcotic agent; Z79.1 Long term (current) use of non-steroidal anti-inflammatories (NSAID); Z79.890 Hormone replacement therapy; Z79.899 Other long term (current) drug therapy; W01.0XXA Fall on same level from slipping, tripping and stumbling without subsequent striking against object, initial encounter
CPT/HCPCS: 73060; 73560; 99283

== ENCOUNTER 2025-02-19 08:20 | Day surgery (SDC) | payer OTHER ==
[~2025-02-19] VITALS: Ht 149.9 cm; Wt 75.0 kg
[~2025-02-19 08:20] MED LIST changes: +IBLOOD GLUCOSE TEST STRIP 1 EA TEST VI PRN; +LACTATED RINGER'S 1,000 ML IV SCH; +LIDOCAINE HCL 1% 5 ML SDV INJ ONE; +MAGNESIUM400 MG PO; +MIDAZOLAM HCL 5 MG/5 ML VIAL IV PRN; +MULTI-DAY PLUS1 EACH PO; +NAPROXEN500 MG PO; +PERCOCET 5-3251 EACH PO; +VITAMIN B COMP1 EAC1 PO; +VITAMIN E TOP; +[UNRECOGNIZED DRUG - OTHER] PO; +fentaNYL citrate 100 MCG/2 ML VIAL IV PRN
[2025-02-19 08:44] VITALS: BP 136/82
[2025-02-19] MEDS ORDERED: MIDAZOLAM HCL 5 MG/5 ML VIAL ONE (09:27)
[2025-02-19] MEDS ORDERED: fentaNYL citrate 100 MCG/2 ML VIAL ONE (09:27)
--- NOTE | 2025-02-19 10:57 | NUR ---
02/19/25 Tate7 Renee Cobb 1033- PT ARRIVES TO PACU, REACTIVE TO STIMULUS, LEFT LATERAL POSITION. O2 AT 3L PER NC, BREATHING EVEN AND NON LABORED. LR INFUSING TO RH IV. ABD SOFT, NON DISTENDED. ALL MONITORS IN PLACE. 1042- PT WOKE WITH VERBAL AND TACTILE STIMULI, PT HAS SOME NYSTAGMUS, REORIENTED TO TIME AND PLACE. DR MACK AT BEDSIDE TO DISCUSS FINDINGS. 1050- PT WAKES ON OWN, DENIES PAIN AND NAUSEA. PT IS PASSING LARGE AMOUNTS OF GAS. REPORTS JUST TIRED. 1054- PT MOVED TO ROOM AIR AT THIS TIME.
[2025-02-19 11:31] VITALS: BP 122/75
--- NOTE | 2025-02-20 07:20 | OR ---
[facility] [address] [place], [place] [address] Signed DATE OF OPERATION: 02/19/2025 SURGEON: Ashanti Mack MD PREOPERATIVE DIAGNOSES: 1. Gastroesophageal reflux disease. 2. Brother with esophageal cancer and alcoholism. 3. Internal and external hemorrhoids. 4. Lifelong chronic diarrhea. 5. Screening. POSTOPERATIVE DIAGNOSES: 1. Small hiatal hernia (2 cm). 2. GE junction at 32 cm. 3. Moderate internal and external hemorrhoids. PROCEDURES: 1. Esophagogastroduodenoscopy with CLOtest and biopsy of the antrum. 2. Colonoscopy without biopsy. ESTIMATED BLOOD LOSS: None. INDICATIONS: Khushi is a 59-year-old female, asked to see me for both upper and lower endoscopy. She has had trouble with acid reflux and has to use Protonix each day. She worries because her brother was an alcoholic and had esophageal cancer. She believes he of an aneurysm. She has never had an upper endoscopy. I did help her with a colonoscopy back in 2013 at the age of 48. This was for screening purposes. She had internal and external hemorrhoids. She did fine with Versed and fentanyl. We asked her to follow up in 10 years. There is no family history of colon cancer or polyps. She told me she has had lifelong chronic diarrhea. In the office, I gave her pamphlets on both upper and lower endoscopy. We had reviewed the nature of the test. There is risk including, but not limited to gas bloating, crampy abdominal pain, bleeding, perforation requiring surgery, and missed diagnosis. We also reviewed the written instructions for the bowel prep line by line. It is the same bowel prep she took previously. She recalls the need for IV conscious sedation. She understands an adult person has to take her home afterwards. She had expressed understanding and wished to proceed. DESCRIPTION OF PROCEDURE: Electronically Signed By: ASHANTI MACK MD 02/20/25 0720 PATIENT NAME: KHUSHI HUGHES OPERATIVE REPORT DATE OF : 61 REPORT #: [id number] PHYSICIAN: ASHANTI MACK MD PCP: KESHIA TRACEY PAC REPORT IS CONFIDENTIAL AND NOT TO BE RELEASED WITHOUT AUTHORIZATION [facility] [address] [place], [place] [address] Signed Khushi was taken into our endoscopy suite and placed in the supine semi-recumbent position. She was given IV sedation with Versed and fentanyl. A total of 7 mg of Versed and 125 mcg of fentanyl were used to help with both the upper and lower endoscopy. The posterior oropharynx was anesthetized with lidocaine spray. A bite block was utilized for the case. The adult gastroscope was introduced and advanced out into the duodenum under direct visualization of camera without difficulty. The duodenum and pyloric channel were unremarkable. She had very minimal if any inflammation in the stomach. We went ahead and took a biopsy of the antrum for CLOtest as well as pathologic review. There were no ulcerations. Upon retroflexion of scope, she has just a tiny hiatal hernia. Maybe 2 cm at most. Her GE junction is about 32 cm. She has mild disruption to the Z-line. There was no Mauro's mucosa. No distal esophagitis. Her middle and upper esophagus were unremarkable. After this, the adult gastroscope was then removed and the gas was suctioned out. Khushi tolerated the upper endoscopy well. Khushi was then rotated into the left lateral decubitus position. She was maintained on IV sedation with the Versed and fentanyl. A digital rectal exam was performed and she does have moderate sized circumferential external hemorrhoids. She has good sphincter tone. There are no masses. The adult colonoscope was introduced and advanced under direct visualization of camera. It took a little bit to get up through the sigmoid colon and she needed some extra Versed and fentanyl. We also used some mild abdominal compression. Once we got in the left colon it opened up nicely and the camera went around fairly readily into the cecum itself. Her prep was quite good. We could easily see the appendiceal orifice and ileocecal valve. The scope was slowly withdrawn. We took pictures throughout for photodocumentation. No pathology throughout the entire colon or rectum. Upon retroflexion of scope she has minimal to moderate internal hemorrhoid columns. After this, the gas was suctioned out, colonoscope removed. Khushi tolerated the lower endoscopy overall well. If she has recall of her procedure, she might need monitored anesthesia care in the future. RECOMMENDATIONS: Khushi will follow up my office in 7 to 14 days to review her results. If she has recall of the colonoscopy she might be better served as she is getting older with monitored anesthesia care. Particularly since her next colonoscopy would be in 10 years. Ashanti Mack MD ALB/MODL Electronically Signed By: ASHANTI MACK MD 02/20/25 0720 PATIENT NAME: KHUSHI HUGHES OPERATIVE REPORT DATE OF : 61 REPORT #: [id number] PHYSICIAN: ASHANTI MACK MD PCP: KESHIA TRACEY REPORT IS CONFIDENTIAL AND NOT TO BE RELEASED WITHOUT AUTHORIZATION [facility] [address] [place] [address] Signed /[id number] cc: MD Keshia Sotelo PA-C Copies: ASHANTI MACK MD, ERIKA PAC ~ Electronically Signed By: ASHANTI MACK MD 02/20/25 0720 PATIENT NAME: KHUSHI HUGHES OPERATIVE REPORT DATE OF : 61 REPORT #: [id number] PHYSICIAN: ASHANTI MACK MD PCP: KESHIA TRACEY REPORT IS CONFIDENTIAL AND NOT TO BE RELEASED WITHOUT AUTHORIZATION
--- NOTE | 2025-02-20 14:04 | PATH ---
[facility] [address] [place], [place] [address] Signed SPECIMEN(S): A ANTRUM BIOPSY SPECIMEN SOURCE: A. ANTRUM BIOPSY CLINICAL HISTORY: GERD, screening, diarrhea FINAL PATHOLOGIC DIAGNOSIS: Stomach, antrum, biopsy: - Gastric antral mucosa with focal complete intestinal metaplasia; negative for dysplasia - Negative for Helicobacter pylori with HE stains BRP MICROSCOPIC EXAMINATION: Histologic sections of all submitted blocks are examined by light microscopy. These findings, together with the gross examination, support the pathologic diagnosis. GROSS DESCRIPTION: The specimen, labeled and designated "Rodger antrum biopsy," is received in formalin and consists of one wheeler soft tissue fragment, 0.3 cm. Entirely submitted in (A1). VB (under the direct supervision of a pathologist) The Gross Description was prepared using a voice recognition system. The report was reviewed for accuracy; however, sound-alike word errors, addition and/or deletions may occur. If there is any question about this report, please contact Client Services. ADDITIONAL NOTES: Immunohistochemical and/or in situ hybridization studies if performed in this case included appropriate positive controls that reacted as expected. This test was developed and its performance characteristics determined by [facility]. It has not been cleared or approved by the U.S. Food and Drug Administration. The FDA has determined that such clearance or approval is not necessary. This test is used for clinical purposes. It should not be regarded as investigational or for research. [facility] is certified under the Clinical Laboratory Improvement Amendments of 1988 (CLIA) as qualified to perform high complexity clinical PATIENT NAME: CHARLOTTE HUGHES PATHOLOGY DATE OF : 61 REPORT #: [id number] PHYSICIAN: SALEEM GAYLE PCP: SARAH TRACEY PAC REPORT IS CONFIDENTIAL AND NOT TO BE RELEASED WITHOUT AUTHORIZATION [facility] [address] [place], [place] [address] Signed laboratory testing. PERFORMING LABORATORY: Technical component was performed by [facility], [address] [place] [address] (CLIA# [id number]). Professional interpretation was performed by [facility], [address] [place] [address] (CLIA#: [id number]). Diagnostician: Guille Sanchez MD Pathologist Electronically Signed 02/20/2025 Copies: ~ PATIENT NAME: CHARLOTTE HUGHES PATHOLOGY DATE OF : 61 REPORT #: [id number] PHYSICIAN: SALEEM GAYLE PCP: SARAH TRACEY PAC REPORT IS CONFIDENTIAL AND NOT TO BE RELEASED WITHOUT AUTHORIZATION
== END 2025-02-19 11:45 | disposition home or self-care (01) ==
LOC: DS 08:20
PROVIDERS: ATTEND Colon & Rectal Surgery
PROC: 0DJD8ZZ Inspection of Lower Intestinal Tract, Via Natural or Artificial Opening Endoscopic (ICD-10-PCS; principal; 2025-02-19 09:45)
PROC: 0DB68ZX Excision of Stomach, Via Natural or Artificial Opening Endoscopic, Diagnostic (ICD-10-PCS; 2025-02-19 09:45)
DX: Z12.11 Encounter for screening for malignant neoplasm of colon (principal); K64.8 Other hemorrhoids; K64.4 Residual hemorrhoidal skin tags; K31.A0 Gastric intestinal metaplasia, unspecified; K44.9 Diaphragmatic hernia without obstruction or gangrene; K52.9 Noninfective gastroenteritis and colitis, unspecified; K21.9 Gastro-esophageal reflux disease without esophagitis; F17.210 Nicotine dependence, cigarettes, uncomplicated; E03.9 Hypothyroidism, unspecified; E66.9 Obesity, unspecified; Z68.33 Body mass index [BMI] 33.0-33.9, adult; Z79.890 Hormone replacement therapy; Z79.899 Other long term (current) drug therapy; Z80.0 Family history of malignant neoplasm of digestive organs
CPT/HCPCS: 36415; 87077; 99153; G0500; J2250; J3010